=== PATIENT | male | born 1940 | race Caucasian/White ===

== ENCOUNTER → 2017-12-12 | Outpatient (CLI) | payer MEDICARE, OTHER ==
[~2017-12-12] MED LIST: ASPIR-LOW81 MG PO; ASPIRIN E.C. 8181 MG PO; AVANDIA4 MG PO; BACTRIM DS 8001 TAB PO; CEPHALEXIN500 M1 PO; CRESTOR20 MG PO; EPA/GLA1 SGL PO; FORTAMET1000 MG PO; FOSINOPRIL SODI10 MG PO; GEMCOR600 MG PO; GLUCOPHAGE1000 MG PO; GLYBURIDE MICRON3 MG PO; HCTZ 25MG TAB25 MG PO; HCTZ 25MG25 MG PO; LANTUS100 U/ML SC; LODINE XL500 MG PO; MONOPRIL40 MG PO; NEURONTIN300 MG/CAP PO; NIACIN 250250 MG/CAP PO; NIACIN500 M3; NORCO 325 MG-51 TAB PO; NORVASC 10MG10 MG PO; NOVOLIN R100 U/ML SC; PRILOSEC 20MG20 MG PO; PRILOSEC PO; SYNTHROID 0.0.025 MG PO; TOPROL XL50 MG PO; ZETIA10 MG PO; ZOCOR80 MG PO
== END ==
LOC: COL.RAD 08:07
DX: R06.00 Dyspnea, unspecified (principal); N28.1 Cyst of kidney, acquired; M48.14 Ankylosing hyperostosis [Forestier], thoracic region
CPT/HCPCS: Q9967

== ENCOUNTER 2018-02-22 10:50 | Day surgery (SDC) | payer MEDICARE, OTHER ==
[2018-02-22] VITALS (165 sets, daily range): BP systolic 130–175; BP diastolic 75–88; PULSE 53–87; TEMP 96.7–98; O2SAT 87–100
[~2018-02-22] VITALS: Ht 172.7 cm; Wt 125.0 kg
[2018-02-22 11:10] LABS: HEMATOCRIT 46.7 % (42.0-52.0); HEMOGLOBIN 15.2 g/dl (13.5-18.0); MEAN CELL VOLUME 90 fl (80.0-100.0); MEAN CORPUSCULAR HEMOGLOBIN 29 pg (27.0-31.0); MEAN CORPUSCULAR HGB CONC 33 g/dl (33.0-37.0); MEAN PLATELET VOLUME 10.7 fl (7.4-10.4); PLATELET COUNT 216 K/mm3 (130-400); RED BLOOD COUNT 5.17 M/mm3 (4.20-5.60); REDCELL DISTRIBUTION WIDTH-CV 12.5 % (11.5-14.5)
[2018-02-22 11:20] LABS: CALCIUM 8.8 mg/dL (8.4-10.2); CREATININE, serum 0.98 mg/dL (0.66-1.25); POTASSIUM 4.5 mmol/L (3.4-5.0)
[2018-02-22 11:24] LABS: PROTHROMBIN TIME 10.8 SECONDS (9.7-12.8)
[2018-02-22] MEDS ORDERED: LIPITOR 40MG TA40 MG PO (11:53)
[2018-02-23] VITALS (509 sets, daily range): BP systolic 134–152; BP diastolic 63–82; PULSE 63–97; TEMP 97.1; O2SAT 83–98
[2018-02-23 05:57] LABS: BASO # 0.1 (0.0-0.2); BASO % 0.7 % (0.0-2.0); EOS # 0.5 (0.0-0.7); EOS % 6.1 % (0-4.0); GRAN # 4.8 (1.4-6.5); GRAN % 63.5 % (42.2-75.2); HEMATOCRIT 45.3 % (42.0-52.0); HEMOGLOBIN 14.9 g/dl (13.5-18.0); LYMPH # 1.6 (1.2-3.4); LYMPH % 21.5 % (20.0-51.0); MEAN CELL VOLUME 90 fl (80.0-100.0); MEAN CORPUSCULAR HEMOGLOBIN 30 pg (27.0-31.0); MEAN CORPUSCULAR HGB CONC 33 g/dl (33.0-37.0); MEAN PLATELET VOLUME 10.9 fl (7.4-10.4); MONO # 0.6 (0.1-0.6); MONO % 7.8 % (1.7-9.3); PLATELET COUNT 201 K/mm3 (130-400); RED BLOOD COUNT 5.02 M/mm3 (4.20-5.60); REDCELL DISTRIBUTION WIDTH-CV 12.6 % (11.5-14.5)
[2018-02-23 06:08] LABS: CALCIUM 8.9 mg/dL (8.4-10.2); CREATININE, serum 0.9 mg/dL (0.66-1.25); POTASSIUM 4.5 mmol/L (3.4-5.0)
[2018-02-23] MEDS ORDERED: BRILINTA90 MG PO (11:41)
[2018-02-23] MEDS ORDERED: LIPITOR 80MG80 MG PO (11:42)
[2018-02-23] MEDS ORDERED: TOPROL XL 25MG25 MG PO (11:42)
== END 2018-02-23 12:42 | disposition home or self-care (01) ==
LOC: COL.CAR 10:50 → ICU 15:20 → COL.CAR 02-23 12:42
PROVIDERS: Internal Medicine Cardiovascular Disease; Nurse Practitioner
DX: I25.10 Atherosclerotic heart disease of native coronary artery without angina pectoris (principal); I27.20 Pulmonary hypertension, unspecified; G47.30 Sleep apnea, unspecified; I10 Essential (primary) hypertension; E11.42 Type 2 diabetes mellitus with diabetic polyneuropathy; E78.5 Hyperlipidemia, unspecified; Z79.4 Long term (current) use of insulin; J44.9 Chronic obstructive pulmonary disease, unspecified; Z87.891 Personal history of nicotine dependence; Z79.82 Long term (current) use of aspirin; Z79.899 Other long term (current) drug therapy
CPT/HCPCS: OP; C9600; C9601; J1815; J2250; J3010; Q9967

== ENCOUNTER 2018-05-07 15:36 | Emergency (ER) | payer MEDICARE, OTHER ==
[~2018-05-07] VITALS: Ht 170.2 cm; Wt 121.8 kg
[~2018-05-07 15:36] MED LIST changes: +BRILINTA90 MG PO; +LIPITOR 40MG TA40 MG PO; +LIPITOR 80MG80 MG PO; +TOPROL XL 25MG25 MG PO
[2018-05-07 15:41] VITALS: TEMP 96
[2018-05-07 16:16] LABS: BASO # 0.1 (0.0-0.2); BASO % 0.7 % (0.0-2.0); EOS # 0.2 (0.0-0.7); EOS % 2.1 % (0-4.0); GRAN # 7.2 (1.4-6.5); GRAN % 79.4 % (42.2-75.2); HEMATOCRIT 38.8 % (42.0-52.0); HEMOGLOBIN 12.9 g/dl (13.5-18.0); LYMPH # 0.8 (1.2-3.4); LYMPH % 8.7 % (20.0-51.0); MEAN CELL VOLUME 89 fl (80.0-100.0); MEAN CORPUSCULAR HEMOGLOBIN 30 pg (27.0-31.0); MEAN CORPUSCULAR HGB CONC 33 g/dl (33.0-37.0); MEAN PLATELET VOLUME 11.1 fl (7.4-10.4); MONO # 0.8 (0.1-0.6); MONO % 8.7 % (1.7-9.3); PLATELET COUNT 163 K/mm3 (130-400); RED BLOOD COUNT 4.34 M/mm3 (4.20-5.60); REDCELL DISTRIBUTION WIDTH-CV 12.6 % (11.5-14.5)
[2018-05-07 16:24] LABS: ALBUMIN 3.9 gm/dL (3.5-5.0); BILIRUBIN,TOTAL 0.5 mg/dL (0.0-1.0); CALCIUM 8.6 mg/dL (8.4-10.2); CREATININE, serum 1.11 mg/dL (0.66-1.25); POTASSIUM 3.4 mmol/L (3.4-5.0); TOTAL PROTEIN 6.9 gm/dL (6.4-8.2)
[2018-05-07 16:33] LABS: TROPONIN-I 0.016 ng/mL (0.000-0.034)
[2018-05-07 17:43] VITALS: BP 108/50; PULSE 63
== END 2018-05-07 17:43 | disposition home or self-care (01) ==
LOC: COL.ER 15:36
PROVIDERS: Emergency Medicine
DX: E11.649 Type 2 diabetes mellitus with hypoglycemia without coma (principal); I10 Essential (primary) hypertension; I25.10 Atherosclerotic heart disease of native coronary artery without angina pectoris; E78.00 Pure hypercholesterolemia, unspecified; Z95.5 Presence of coronary angioplasty implant and graft; Z79.4 Long term (current) use of insulin; Z79.82 Long term (current) use of aspirin

== ENCOUNTER → 2018-05-17 | Outpatient (CLI) | payer MEDICARE, OTHER ==
[2018-05-17 10:56] LABS: CALCIUM 8.5 mg/dL (8.4-10.2); CREATININE, serum 0.82 mg/dL (0.66-1.25); POTASSIUM 3.8 mmol/L (3.4-5.0)
[2018-05-17 22:54] LABS: RHEUMATOID FACTOR-SCREEN <15 IU/mL (0-29)
[2018-05-20 11:18] LABS: ANGIOTENSIN CONVERTING ENZYME <5 U/L (8 - 53)
[2018-05-21 01:12] LABS: ANA SCREEN with REFLEX Indeterminate (Negative)
== END ==
LOC: COL.RAD 10:09
PROVIDERS: Internal Medicine Pulmonary Disease
DX: I27.20 Pulmonary hypertension, unspecified (principal); I51.7 Cardiomegaly; N28.1 Cyst of kidney, acquired
CPT/HCPCS: A9539; A9540

== ENCOUNTER 2020-06-29 19:33 | Inpatient (IN) | payer MEDICARE, OTHER ==
[~2020-06-29] VITALS: Ht 170.2 cm; Wt 114.6 kg
[2020-06-29 20:08] LABS: BASO % 0.5 % (0.0-2.0); EOS # 0.5 (0.0-0.7); GRAN # 4.5 (1.4-6.5); GRAN % 59.4 % (42.2-75.2); HEMATOCRIT 44.4 % (42.0-52.0); HEMOGLOBIN 14.6 g/dl (13.5-18.0); LYMPH # 1.9 (1.2-3.4); LYMPH % 24.9 % (20.0-51.0); MEAN CELL VOLUME 91 fl (80.0-100.0); MEAN CORPUSCULAR HEMOGLOBIN 30 pg (27.0-31.0); MEAN CORPUSCULAR HGB CONC 33 g/dl (33.0-37.0); MEAN PLATELET VOLUME 10.7 fl (7.4-10.4); MONO # 0.7 (0.1-0.6); MONO % 8.7 % (1.7-9.3); PLATELET COUNT 184 K/mm3 (130-400); RED BLOOD COUNT 4.87 M/mm3 (4.20-5.60); REDCELL DISTRIBUTION WIDTH-CV 12.6 % (11.5-14.5)
[2020-06-29] MEDS ORDERED: FLOMAX 0.40.4 MG/CAP PO (20:10)
[2020-06-29] MEDS ORDERED: PEPCID 20MG TAB20 MG PO (20:11)
[2020-06-29] MEDS ORDERED: INSLANT SQ (20:12)
[2020-06-29] MEDS ORDERED: NOVLOG SQ (20:13)
[2020-06-29] MEDS ORDERED: LASIX 20MG TABL20 MG PO (20:13)
[2020-06-29] MEDS ORDERED: LIPITOR 40MG TA40 MG PO (20:14)
[2020-06-29] MEDS ORDERED: ASPIRIN 81M81 MG/TA2 PO (20:15)
[2020-06-29] MEDS ORDERED: NORVASC 10MG10 MG PO (20:15)
[2020-06-29] MEDS ORDERED: JARDIANCE25 (20:16)
[2020-06-29] MEDS ORDERED: GLUCOPHAGE1000 MG PO (20:16)
[2020-06-29] MEDS ORDERED: MONOPRIL20 MG PO (20:17)
[2020-06-29] MEDS ORDERED: MONOPRIL40 MG PO (20:17)
[2020-06-29] MEDS ORDERED: EPA FISH OIL1 SGL PO (20:18)
[2020-06-29] MEDS ORDERED: SPIRIVA RE2.5 MCG/Ac IH (20:19)
[2020-06-29] MEDS ORDERED: BRILINTA90 MG PO (20:20)
[2020-06-29 20:21] LABS: ALBUMIN 4.7 gm/dL (3.5-5.0); BILIRUBIN,TOTAL 0.8 mg/dL (0.0-1.0); C-REACTIVE PROTEIN 0.6 mg/dL (0.0-0.9); CALCIUM 9.6 mg/dL (8.4-10.2); CREATININE, serum 1.13 (0.66-1.25); POTASSIUM 4.1 mmol/L (3.4-5.0); TOTAL PROTEIN 7.9 gm/dL (6.4-8.2)
[2020-06-29] MEDS ORDERED: VITAMIN D31000 I1 PO (20:22)
[2020-06-29 20:29] LABS: TROPONIN-I 0.025 ng/mL (0.000-0.035)
[2020-06-29] MEDS ORDERED: NEURONTIN300 MG/CAP PO (21:57)
--- NOTE | 2020-06-29 23:30 | NUR ---
PT arrived to unit via ER bed accompanied by ANTOINE Tracy. PT on portable monitor during transport. PT then ambulated self out of bed into unit bed and attached to CRM monitor. Oriented patient to unit, policies, POC. PT verbalized understanding. It was noted that PT's blood pressure was in the 170's/90's upon admit to the unit, Christiana BERNABE called and orders received. Will continue to monitor.
[2020-06-29 23:33] VITALS: BP 179/96; PULSE 96; TEMP 98.4
[2020-06-30] VITALS (312 sets, daily range): BP systolic 108–163; BP diastolic 51–88; PULSE 58–90; TEMP 98; O2SAT 88–100
[2020-06-30 05:01] LABS: BASO % 0.5 % (0.0-2.0); EOS # 0.3 (0.0-0.7); EOS % 3.9 % (0-4.0); GRAN # 5.7 (1.4-6.5); GRAN % 71.2 % (42.2-75.2); HEMATOCRIT 43.4 % (42.0-52.0); HEMOGLOBIN 14.2 g/dl (13.5-18.0); LYMPH # 1.2 (1.2-3.4); LYMPH % 15.3 % (20.0-51.0); MEAN CELL VOLUME 90 fl (80.0-100.0); MEAN CORPUSCULAR HEMOGLOBIN 29 pg (27.0-31.0); MEAN CORPUSCULAR HGB CONC 33 g/dl (33.0-37.0); MEAN PLATELET VOLUME 10.8 fl (7.4-10.4); MONO # 0.7 (0.1-0.6); MONO % 8.6 % (1.7-9.3); PLATELET COUNT 170 K/mm3 (130-400); RED BLOOD COUNT 4.84 M/mm3 (4.20-5.60); REDCELL DISTRIBUTION WIDTH-CV 12.6 % (11.5-14.5)
[2020-06-30 05:19] LABS: CALCIUM 9.5 mg/dL (8.4-10.2); CREATININE, serum 0.94 (0.66-1.25); POTASSIUM 3.6 mmol/L (3.4-5.0)
[2020-06-30 08:19] LABS: MAGNESIUM 1.9 mg/dL (1.6-2.3)
--- NOTE | 2020-06-30 11:34 | NUR ---
SEE MEREBRITTANY FOR ALL MEDICATION ADMINISTRATION TIMES AND INTRA\POST SEDATION ASSESSMENT
--- NOTE | 2020-06-30 15:15 | NUR ---
STUART met with the patient to discuss discharge plan. The patient lives in [place] with his , Mihaela ([id number]#[phone]), son, [id number], two grandchildren, and five great grandchildren. He reports independence with ADLs and has a cane and walker. The patient's PCP is Dr. Mark Lee and he receives his medications through the [place], on [address], and at [facility]. He reports no difficulties obtaining his meds. The patient does not have advance directives in EMR, but he states that he believes he has a DPOA-HC completed and that his is his DPOA-HC. The patient plans to return back home with his family upon discharge. STUART contacted and reviewed d/c plan with the patient's , Susan. Susan reports that she has no concerns with the patient returning back home with her. No additional needs at this time.
--- NOTE | 2020-06-30 20:10 | NUR ---
GABI RN GAVE NURSING REPORT, I TRANSFERRED PATIENT TO ROOM 348 YORDAN SCHULTZ AWARE OF ADMIT
--- NOTE | 2020-06-30 20:16 | NUR ---
PT STATES THAT THE CPAP LAST NIGHT DID NOT WORK FOR HIM AND WOULD NOT WANT TO WEAR IT TONIGHT. PT IS MOVING UP STAIRS AND CPAP WILL BE TAKEN BACK TO DEPARTMENT AND TAKEN OUT OF THE ROOM. WILL CONTINUE TO MONITOR AND ASSESS PT.
[2020-07-01 00:32] VITALS: BP 104/54; PULSE 64; TEMP 97.8
[2020-07-01 04:20] VITALS: BP 132/67; PULSE 69; TEMP 97.8
--- NOTE | 2020-07-01 04:25 | NUR ---
Patient transferred from the ICU this shift. PRN pain medication given as prescribed for pain to left shoulder. Patient alert and oriented. Dressing to left chest is CDI. Immobilizer sling in place. Patient up in the room independently. Blood glucose levels obtained and insulin given per orders. +2 pitting edema to bilateral lower legs. Denies any further needs at this time. Will continue to monitor.
[2020-07-01 07:13] LABS: BASO # 0.1 (0.0-0.2); BASO % 0.6 % (0.0-2.0); EOS # 0.5 (0.0-0.7); EOS % 5.4 % (0-4.0); GRAN # 5.6 (1.4-6.5); GRAN % 67.2 % (42.2-75.2); HEMOGLOBIN 14.5 g/dl (13.5-18.0); LYMPH # 1.4 (1.2-3.4); LYMPH % 16.2 % (20.0-51.0); MEAN CELL VOLUME 90 fl (80.0-100.0); MEAN CORPUSCULAR HEMOGLOBIN 30 pg (27.0-31.0); MEAN CORPUSCULAR HGB CONC 33 g/dl (33.0-37.0); MEAN PLATELET VOLUME 10.8 fl (7.4-10.4); MONO # 0.9 (0.1-0.6); MONO % 10.1 % (1.7-9.3); PLATELET COUNT 133 K/mm3 (130-400); RED BLOOD COUNT 4.87 M/mm3 (4.20-5.60); REDCELL DISTRIBUTION WIDTH-CV 12.9 % (11.5-14.5)
[2020-07-01 07:23] LABS: CALCIUM 8.8 mg/dL (8.4-10.2); CREATININE, serum 0.97 (0.66-1.25); POTASSIUM 4.1 mmol/L (3.4-5.0)
[2020-07-01 08:03] VITALS: BP 120/54; PULSE 68; TEMP 98.2
--- NOTE | 2020-07-01 08:08 | NUR ---
Rates pain in left shoulder 6/10, requests pain medication. Describes the pain as a ache. Sitting up in chair, left arm in sling. Administer oxycodone and Tylenol as prescribed. Patient denies additional needs.
[2020-07-01] MEDS ORDERED: CEPHALEXIN500 M1 PO (09:12)
[2020-07-01] MEDS ORDERED: ROXICODONE 55 MG/TAB PO (09:18)
--- NOTE | 2020-07-01 11:45 | NUR ---
Patient meds that were being held in pharmacy [facility], [facility] signed. Also gave patient heart device back that he came into the ER with that he has to give back to the company he got it from. Patient sitting up in chair. Pain 3/10 at this time to left shoulder. Denies additional needs at this time.
[2020-07-01 12:27] VITALS: BP 138/72; PULSE 75; TEMP 97.2
--- NOTE | 2020-07-01 12:40 | NUR ---
Reviewed all discharge instructions with the patient. Questions answered. Patient verbalizes understanding and signs paperwork. Discharge packet provided to the patient. Patient says that his ride should be here around 1300 to pick him up. Patient getting dressed and gathering all belongings at this time.
--- NOTE | 2020-07-01 13:15 | NUR ---
Patient ride here to take him home. Patient assisted out to POV via wheelchair with all belongings.
== END 2020-07-01 13:15 | disposition home or self-care (01) | DRG 227 ==
LOC: COL.ER 19:33 → ICU 20:25 → SURG 06-30 20:50
PROVIDERS: Emergency Medicine; Nurse Practitioner Family; Physician Assistant; ADMIT Hospitalist
PROC: 0JH609Z Insertion of Cardiac Resynchronization Defibrillator Pulse Generator into Chest Subcutaneous Tissue and Fascia, Open Approach (ICD-10-PCS; principal; 2020-06-30)
PROC: 02HL3KZ Insertion of Defibrillator Lead into Left Ventricle, Percutaneous Approach (ICD-10-PCS; 2020-06-30)
PROC: 02HK3KZ Insertion of Defibrillator Lead into Right Ventricle, Percutaneous Approach (ICD-10-PCS; 2020-06-30)
DX: I44.2 Atrioventricular block, complete (principal); I42.0 Dilated cardiomyopathy; Q21.1 Atrial septal defect; I45.2 Bifascicular block; G47.30 Sleep apnea, unspecified; E11.42 Type 2 diabetes mellitus with diabetic polyneuropathy; I12.9 Hypertensive chronic kidney disease with stage 1 through stage 4 chronic kidney disease, or unspecified chronic kidney disease; N18.9 Chronic kidney disease, unspecified; N40.0 Benign prostatic hyperplasia without lower urinary tract symptoms; E11.22 Type 2 diabetes mellitus with diabetic chronic kidney disease; E78.5 Hyperlipidemia, unspecified; J44.9 Chronic obstructive pulmonary disease, unspecified
CPT/HCPCS: 99223-AI; 99232-AI; 99239; G0378; J0360; J0690; J1815; J2250; J3010; J7030; Q9967

== ENCOUNTER 2020-07-05 06:53 | Day surgery (SDC) | payer MEDICARE, OTHER ==
[2020-07-05] VITALS (10 sets, daily range): BP systolic 112–153; BP diastolic 62–81; PULSE 59–88; TEMP 98.9
[~2020-07-05] VITALS: Ht 170.3 cm; Wt 114.7 kg
[~2020-07-05 06:53] MED LIST changes: +ASPIRIN 81M81 MG/TA2 PO; +EPA FISH OIL1 SGL PO; +FLOMAX 0.40.4 MG/CAP PO; +INSLANT SQ; +JARDIANCE25; +LASIX 20MG TABL20 MG PO; +MONOPRIL20 MG PO; +NOVLOG SQ; +PEPCID 20MG TAB20 MG PO; +ROXICODONE 55 MG/TAB PO; +SPIRIVA RE2.5 MCG/Ac IH; +VITAMIN D31000 I1 PO
[2020-07-05 08:31] LABS: HEMATOCRIT 39.5 % (42.0-52.0); MEAN CELL VOLUME 91 fl (80.0-100.0); MEAN CORPUSCULAR HEMOGLOBIN 30 pg (27.0-31.0); MEAN CORPUSCULAR HGB CONC 33 g/dl (33.0-37.0); MEAN PLATELET VOLUME 11.3 fl (7.4-10.4); PLATELET COUNT 152 K/mm3 (130-400); RED BLOOD COUNT 4.36 M/mm3 (4.20-5.60); REDCELL DISTRIBUTION WIDTH-CV 12.9 % (11.5-14.5)
[2020-07-05 08:36] LABS: PROTHROMBIN TIME 11.7 SECONDS (9.7-12.8)
[2020-07-05 08:39] LABS: PARTIAL THROMBOPLASTIN TIME 24.8 SECONDS (26.0-37.0)
[2020-07-05 08:47] LABS: CALCIUM 9.1 mg/dL (8.4-10.2); CREATININE, serum 0.96 (0.66-1.25); POTASSIUM 4.3 mmol/L (3.4-5.0)
[2020-07-05] MEDS ORDERED: LIPITOR 40MG TA40 MG PO (09:07)
[2020-07-05] MEDS ORDERED: PEPCID 20MG TAB20 MG PO (09:08)
[2020-07-05] MEDS ORDERED: LASIX 20MG TABL20 MG PO (09:09)
[2020-07-05] MEDS ORDERED: NOVOLOG 100U100 U/M1 SQ (09:11)
--- NOTE | 2020-07-05 09:11 | NUR ---
SEE MERGE DOCUMENTATION FOR MEDICATION ADMINISTRATION TIMES AND INTRA/POST PROCEDURE SEDATION ASSESSMENTS. BARBEAU TEST NEGATIVE TO BILATERAL HANDS; PLAN FOR RIGHT FEMORAL ACCESS. PT TOOK METFORMIN LAST PM; MD NOTIFIED AND OK WITH PROCEEDING.
[2020-07-05] MEDS ORDERED: LANTUS SOLOS100 U/ML SQ (09:12)
[2020-07-05] MEDS ORDERED: ROXICODONE 55 MG/TAB PO (09:16)
--- NOTE | 2020-07-05 13:22 | NUR ---
Pt is back from biology laboratory assistant, he is awake and alert, pwd, rt groin site soft, cms intact distal. call light in reach. pt is aware of poc, bedrest till 1400
--- NOTE | 2020-07-05 13:29 | NUR ---
Pt has been doing well during recovery. he has been able to eat and drink. We have reviewed dc/fu and rx instructions and pt verbalized understanding. rt groin site has remained soft with cms intact distal. there has been a small amt faint drainage present on lateral edge of dressing which has remained unchanged during his recovery. Pt denies needs at this time.
--- NOTE | 2020-07-05 14:40 | NUR ---
Pt is ready for departure. He has been amb in room with steady gait, voided with no problem. dressing was changed as there was a small amt bloody drainage on top side of bandage. site was oozing very slowly, and I applied pressure to site for 5 minutes before reapplying a sterile dressing to site. site remains soft without hematoma. dressing was clean and dry when pt departed. I reviewed instructions with pt and his daughter in law again, he did not have any questions. IV was dc'd with cath intact, dressing was applied. to exit via wheelchair.
== END 2020-07-05 15:00 | disposition home or self-care (01) ==
LOC: COL.CAR 06:53
PROVIDERS: Internal Medicine Cardiovascular Disease
DX: I25.10 Atherosclerotic heart disease of native coronary artery without angina pectoris (principal); I42.0 Dilated cardiomyopathy; I45.10 Unspecified right bundle-branch block; J44.9 Chronic obstructive pulmonary disease, unspecified; E11.9 Type 2 diabetes mellitus without complications; M19.90 Unspecified osteoarthritis, unspecified site; I10 Essential (primary) hypertension; F17.210 Nicotine dependence, cigarettes, uncomplicated; I27.20 Pulmonary hypertension, unspecified; Z79.4 Long term (current) use of insulin; Z79.82 Long term (current) use of aspirin
CPT/HCPCS: J1644; J2250; J3010; Q9967